=== PATIENT | male | born 1945 | race Caucasian/White ===

== ENCOUNTER 2017-02-16 10:18 | Emergency (ER) | payer MEDICARE ==
[~2017-02-16] VITALS: Ht 175.3 cm; Wt 74.1 kg
[2017-02-16 10:19] VITALS: BP 143/85
[2017-02-16] MEDS ORDERED: LISI10TA4 PO (10:27)
[2017-02-16] MEDS ORDERED: PREV1CAP PO (10:27)
[2017-02-16] MEDS ORDERED: SIMV40TA2 PO (10:27)
[2017-02-16] MEDS ORDERED: KETOROLAC TROMETHAMINE 10 MG TAB PO ONE (10:45)
[2017-02-16] MEDS ORDERED: CYCL10TA PO (11:04)
== END 2017-02-16 11:08 | disposition home or self-care (01) ==
LOC: M ED 10:18
DX: S46.311A Strain of muscle, fascia and tendon of triceps, right arm, initial encounter (principal); X58.XXXA Exposure to other specified factors, initial encounter; Y92.89 Other specified places as the place of occurrence of the external cause; Y93.89 Activity, other specified; Y99.8 Other external cause status; I10 Essential (primary) hypertension; E78.5 Hyperlipidemia, unspecified; Z79.899 Other long term (current) drug therapy; Z88.0 Allergy status to penicillin; Z87.891 Personal history of nicotine dependence